=== PATIENT | female | born 1980 ===

== ENCOUNTER 2021-12-25 17:38 | Observation (INO) ==
[2021-12-25] MEDS ORDERED: MORPHINE 2 MG/1 ML SYRINGE IV PRN (18:35)
[2021-12-25] MEDS ORDERED: ONDANSETRON 4 MG/2 ML VIAL IV PRN (18:35)
[2021-12-25] MEDS ORDERED: DEXTROSE 5% NACL 0.45% 1,000 ML IV SCH (21:00)
[2021-12-25] MEDS: PIPERACILLIN/TAZOBACTAM 3,375 MG in SODIUM CHLORIDE 0.9% 100 ML IV SCH (23:00)
[2021-12-26 05:54] LABS: Albumin 2.9 G/DL (3.4-5.0); Bilirubin,Total 1.2 MG/DL (0.20-1.00); Calcium 8.7 MG/DL (8.5-10.1); Osmolality,Calculated 277.4 MOS/KG (273-304); Total Protein 6.1 G/DL (6.4-8.2)
[2021-12-26] MEDS: PIPERACILLIN/TAZOBACTAM 3,375 MG in SODIUM CHLORIDE 0.9% 100 ML IV SCH ×3 (06:01→21:48)
[2021-12-26 06:14] LABS: Basophils % 0.5 % (0.0-0.8); Eosinophils # 0.2 10*3/uL (0.0-0.87); Eosinophils % 2.3 % (0.00-10.9); Hemoglobin 7.8 GM/DL (12.0-16.0); Immature Granulocytes % 0.9 %; Immature Granulocytes Absolute 0.06 #; Lymphocytes # 1.3 10*3/uL (1.4-4.0); Lymphocytes % 19.6 % (21.3-54.2); Mean Corpuscular HGB Conc 27.9 GM/DL (32-36); Mean Corpuscular Volume 73.5 FL (87-102); Monocytes # 0.8 10*3/uL (0.11-0.8); Monocytes % 11.7 % (1.7-12.7); Platelet Count 238 T/CUMM (130-400); Red Blood Count 3.81 MC/CUMM (3.8-5.5); Red Cell Distribution Width 17.2 % (9.3-17.3); White Blood Count 6.6 T/CUMM (4-12)
[2021-12-26 06:36] LABS: Hypochromia 1+
[2021-12-26 06:37] LABS: Microcytosis 2+; Ovalocytes Slight; Platelet Estimate Normal
[2021-12-26] MEDS: PANTOPRAZOLE 40 MG VIAL IV SCH (08:37)
[2021-12-26] MEDS: POTASSIUM CHLORIDE RIDER 10 MEQ/100 ML PREMIX IV SCH ×3 (12:38→18:14)
[2021-12-27] MEDS: PIPERACILLIN/TAZOBACTAM 3,375 MG in SODIUM CHLORIDE 0.9% 100 ML IV SCH (05:51)
[2021-12-27] MEDS: POTASSIUM CHLORIDE RIDER 10 MEQ/100 ML PREMIX IV SCH ×2 (07:34)
[2021-12-27] MEDS: PANTOPRAZOLE 40 MG VIAL IV SCH (08:46)
[2021-12-27 12:46] VITALS: BP 98/63
== END 2021-12-27 14:05 | disposition home or self-care (01) ==
LOC: EDBD → EDUNIT# → N.ED 17:38 → N.EDINP 17:38 → N.3E 19:05
PROVIDERS: ADMIT Student in an Organized Health Care Education/Training Program; ATTEND Student in an Organized Health Care Education/Training Program

== ENCOUNTER 2022-01-09 10:31 | Inpatient (IN) ==
[2022-01-09 11:42] LABS: RBC,Urine <1 /HPF (0-4); Squamous Epithelial Cell,Urine Occasional /HPF (0-10); Urine Appearance Clear (Clear); Urine Color Yellow (Yellow); Urine pH 8.5 (4.5-8.0)
[2022-01-09 11:43] LABS: Bilirubin,Urine Negative (Negative); Blood, Urine Negative (Negative); Glucose,Urine (UA) Negative (Negative); Ketones,Urine Negative (Negative); Nitrite,Urine Negative (Negative); Protein,Urine Negative (Negative); Urine Specific Gravity 1.015 (1.001-1.035)
[2022-01-09 12:19] LABS: Basophils % 0.5 % (0.0-0.8); Eosinophils # 0.1 10*3/uL (0.0-0.87); Eosinophils % 3.2 % (0.00-10.9); Hematocrit 29.3 VOL% (35.7-47.0); Hemoglobin 8.5 GM/DL (12.0-16.0); Immature Granulocytes % 0.7 %; Immature Granulocytes Absolute 0.03 #; Lymphocytes % 22.8 % (21.3-54.2); Mean Corpuscular Volume 71.8 FL (87-102); Mean Platelet Volume 9.7 FL (9.6-12.0); Monocytes # 0.5 10*3/uL (0.11-0.8); Monocytes % 11.1 % (1.7-12.7); Neutrophils % 61.7 % (38.7-73.9); Platelet Count 252 T/CUMM (130-400); Red Blood Count 4.08 MC/CUMM (3.8-5.5); Red Cell Distribution Width 16.9 % (9.3-17.3); White Blood Count 4.3 T/CUMM (4-12)
[2022-01-09 12:22] LABS: Albumin 3.2 G/DL (3.4-5.0); Bilirubin,Total 1.1 MG/DL (0.20-1.00); Calcium 8.4 MG/DL (8.5-10.1); Osmolality,Calculated 276.4 MOS/KG (273-304); Potassium 3.1 MMOL/L (3.5-5.1); Total Protein 6.9 G/DL (6.4-8.2)
[2022-01-09] MEDS ORDERED: ACETAMINOPHEN 325 MG TABLET PO PRN (12:50)
[2022-01-09] MEDS ORDERED: HYDROmorphone 1 MG/1 ML SYRINGE IV PRN (12:50)
[2022-01-09] MEDS ORDERED: ONDANSETRON 4 MG/2 ML VIAL IV PRN (12:50)
[2022-01-09] MEDS ORDERED: KETOROLAC 30 MG/1 ML VIAL IV PRN (12:50)
[2022-01-09] MEDS ORDERED: POTASSIUM CHLORIDE 20 MEQ TABLET PO ONE (13:02)
[2022-01-09] MEDS: LEVOFLOXACIN INJ 750 MG/150 ML PREMIX IV SCH (14:37)
[2022-01-09] MEDS: PANTOPRAZOLE 40 MG TABLET PO SCH ×2 (14:38→20:17)
[2022-01-09] MEDS: LACTATED RINGERS 1,000 ML IV SCH (14:38)
[2022-01-09] MEDS: metroNIDAZOLE INJ 500 MG/100 ML PREMIX IV SCH ×2 (17:16→23:40)
[2022-01-10] MEDS: LACTATED RINGERS 1,000 ML IV SCH ×4 (04:14→20:16)
[2022-01-10 05:08] LABS: Basophils % 0.5 % (0.0-0.8); Eosinophils # 0.2 10*3/uL (0.0-0.87); Hematocrit 26.5 VOL% (35.7-47.0); Hemoglobin 7.5 GM/DL (12.0-16.0); Immature Granulocytes % 0.3 %; Immature Granulocytes Absolute 0.01 #; Lymphocytes # 1.2 10*3/uL (1.4-4.0); Lymphocytes % 31.7 % (21.3-54.2); Mean Corpuscular HGB Conc 28.3 GM/DL (32-36); Mean Corpuscular Volume 74.2 FL (87-102); Mean Platelet Volume 9.9 FL (9.6-12.0); Monocytes # 0.4 10*3/uL (0.11-0.8); Monocytes % 10.8 % (1.7-12.7); Neutrophils % 52.7 % (38.7-73.9); Platelet Count 218 T/CUMM (130-400); Red Blood Count 3.57 MC/CUMM (3.8-5.5); Red Cell Distribution Width 16.8 % (9.3-17.3); White Blood Count 3.8 T/CUMM (4-12)
[2022-01-10 05:20] LABS: Calcium 8.2 MG/DL (8.5-10.1); Osmolality,Calculated 281.1 MOS/KG (273-304); Potassium 3.3 MMOL/L (3.5-5.1)
[2022-01-10] MEDS: metroNIDAZOLE INJ 500 MG/100 ML PREMIX IV SCH ×3 (05:59→21:10)
[2022-01-10] MEDS ORDERED: PANTOPRAZOLE 40 MG TABLET PO SCH (09:00)
[2022-01-10] MEDS: PANTOPRAZOLE 40 MG TABLET PO SCH ×2 (09:09→20:19)
[2022-01-10] MEDS: LEVOFLOXACIN INJ 750 MG/150 ML PREMIX IV SCH (14:51)
[2022-01-11] MEDS: LACTATED RINGERS 1,000 ML IV SCH ×4 (04:16→21:14)
[2022-01-11] MEDS: metroNIDAZOLE INJ 500 MG/100 ML PREMIX IV SCH ×3 (06:39→21:15)
[2022-01-11] MEDS ORDERED: propofoL 200 MG/20 ML VIAL IV ONE (09:36)
[2022-01-11] MEDS ORDERED: LIDOCAINE 2% 5 ML VIAL ONE (09:36)
[2022-01-11] MEDS: PANTOPRAZOLE 40 MG TABLET PO SCH ×2 (10:57→21:15)
[2022-01-11] MEDS: LEVOFLOXACIN INJ 750 MG/150 ML PREMIX IV SCH (12:16)
[2022-01-12] MEDS: metroNIDAZOLE INJ 500 MG/100 ML PREMIX IV SCH ×2 (05:26→17:01)
[2022-01-12] MEDS: LACTATED RINGERS 1,000 ML IV SCH ×3 (05:27→17:01)
[2022-01-12] MEDS: LEVOFLOXACIN INJ 750 MG/150 ML PREMIX IV SCH (13:49)
[2022-01-12] MEDS: PANTOPRAZOLE 40 MG TABLET PO SCH (13:49)
[2022-01-12 15:58] VITALS: BP 101/50
== END 2022-01-12 17:04 | disposition home or self-care (01) | DRG 382 ==
LOC: EDUNIT# → EDBD → N.ED 10:31 → N.EDINP 12:50 → N.3E 15:45
PROVIDERS: ADMIT Student in an Organized Health Care Education/Training Program; ATTEND Student in an Organized Health Care Education/Training Program